=== PATIENT | female | born 1995 | race Caucasian/White ===

== ENCOUNTER 2019-05-28 13:44 | Emergency (ER) | payer SELFPAY ==
[~2019-05-28] VITALS: Ht 154.9 cm; Wt 64.9 kg
[2019-05-28 14:28] VITALS: BP 105/67
--- NOTE | 2019-05-28 14:31 | NUR ---
PT TO LOBBY
--- NOTE | 2019-05-28 15:24 | NUR ---
PT TO ER BED 9
--- NOTE | 2019-05-28 15:30 | NUR ---
PATIENT WITH SUDDEN ONSET OF GENERALIZED PAIN OF ABDOMEN, HEAD, AND SORE THROAT severe chills,
[2019-05-28] MEDS ORDERED: NACL 0.9% 2,000 ML IV SCH (15:36)
[2019-05-28] MEDS ORDERED: ACETAMINOPHEN 325 MG SUPP RC ONE (15:40)
[2019-05-28] MEDS ORDERED: cefTRIAXone 1,000 MG in DEXT 5% MINI-BAG PLUS 50 ML IV ONE (15:40)
[2019-05-28] MEDS ORDERED: GENTAMICIN 80 MG in DEXTROSE 5% 100 ML IV ONE (15:40)
[2019-05-28 16:14] LABS: BASOPHILS % (AUTO) 0.2 % (0.0-2.0); EOSINOPHILS % (AUTO) 0.1 % (0.0-4.0); HEMATOCRIT 39.8 % (36-48); HEMOGLOBIN 13.3 g/dL (12.0-16.0); LYMPHOCYTES # (AUTO) 0.7 K/uL (2.5-16.5); LYMPHOCYTES % (AUTO) 4.3 % (20.5-51.1); MEAN CORPUSCULAR HEMOGLOBIN 27 pg (27-31); MEAN CORPUSCULAR HGB CONC 33 g/dL (33-37); MEAN CORPUSCULAR VOLUME 79.9 fL (80-94); MONOCYTES # (AUTO) 0.9 K/uL (0.8-1.0); MONOCYTES % (AUTO) 5.7 % (1.7-9.3); NEUTROPHILS # (AUTO) 14.6 K/uL (1.8-7.7); NEUTROPHILS % (AUTO) 89.7 % (42.2-75.2); PLATELET COUNT (AUTO) 204 K/uL (140-450); RED BLOOD CELL COUNT(AUTO) 4.98 MIL/uL (4.20-5.40); RED CELL DISTRIBUTION WIDTH 14.9 % (11.6-13.7); WHITE BLOOD COUNT (AUTO) 16.3 K/uL (4.8-10.8)
[2019-05-28 16:24] LABS: BILIRUBIN,URINE NEGATIVE (NEGATIVE); BLOOD, URINE NEGATIVE (NEGATIVE); COLOR,URINE YELLOW (YELLOW); LEUKOCYTE ESTERASE ,URINE 3+ (NEGATIVE); NITRITE, URINE NEGATIVE (NEGATIVE); PH,URINE 5.5 (5.0-9.0); UGLUCOSE NEGATIVE (NEGATIVE)
[2019-05-28] MEDS ORDERED: cefTRIAXone 1,000 MG VIAL ONE (16:27)
[2019-05-28] MEDS ORDERED: GENTAMICIN 80 MG/2 ML VIAL ONE (16:27)
[2019-05-28 16:31] LABS: APPEARANCE,URINE HAZY (CLEAR)
[2019-05-28 16:34] LABS: ANION GAP 16.2 (8-16); CARBON DIOXIDE 23.4 mmol/L (21-32); CREATININE 0.8 mg/dL (0.6-1.3); POTASSIUM 3.6 mmol/L (3.5-5.1)
[2019-05-28 16:35] LABS: RBC,URINE 0-5 /HPF (0-5); WBC,URINE 60-80 /HPF (0-5)
[2019-05-28 16:50] LABS: ALBUMIN 4.3 g/dL (3.4-5.0); TOTAL BILIRUBIN 1.6 mg/dL (0.0-1.0)
--- NOTE | 2019-05-28 17:42 | NUR ---
up to restroom
--- NOTE | 2019-05-28 18:47 | NUR ---
PT. TO CT
[2019-05-28 19:14] VITALS: BP 95/54
--- NOTE | 2019-05-28 19:16 | NUR ---
Patient discharged with v/s stable. Written and verbal after care instructions given and explained. Patient alert, oriented and verbalized understanding of instructions. Ambulatory with steady gait. All questions addressed prior to discharge. ID band removed. Patient advised to follow up with PMD. Rx of levaquin and Fiorcet given. Patient educated on indication of medication including possible reaction and side effects. Opportunity to ask questions provided and answered.
== END 2019-05-28 19:16 | disposition home or self-care (01) ==
LOC: MED 13:44
DX: J03.90 Acute tonsillitis, unspecified (principal); N39.0 Urinary tract infection, site not specified; R50.9 Fever, unspecified; R51 Headache; Z87.448 Personal history of other diseases of urinary system
CPT/HCPCS: 36415; 71045; 74176; 80053; 81001; 81025; 83605; 85025; 87040; 87086; 96365; 96367; 99284; J0696; J1580; J7030; Q0092

== ENCOUNTER 2020-08-15 15:11 | Emergency (ER) | payer MEDICAID ==
[~2020-08-15] VITALS: Ht 154.9 cm; Wt 69.9 kg
[2020-08-15 15:15] VITALS: BP 118/71
--- NOTE | 2020-08-15 15:17 | NUR ---
pt ambulated to bed 11, steady gait.
--- NOTE | 2020-08-15 15:25 | NUR ---
25 Y/F PRESENTS TO ED C/O CONSISTENT SHARP RIGHT LOWER ABDOMINAL PAIN 8/ SINCE YESTERDAY. PT REPORTS PAIN RADIATES FROM TO RIGHT SHOULDER AND KNEE PAIN TODAY. DENIES N/V/D, ABNORMAL VAGINAL BLEEDING. PT DENIES CONSTIPATION, REPPORTS NORMAL BM YESTERDAY. PT REPORTS LOSS OF APPETITE. DENIES DYSURIA OR HEMATURIA. PMH: DENIES MEDS: DENIES
--- NOTE | 2020-08-15 15:55 | NUR ---
DR. ROSA AT BEDSIDE.
[2020-08-15] MEDS ORDERED: NACL 0.9% 500 ML IV ONE (15:59)
[2020-08-15] MEDS ORDERED: ONDANSETRON 4 MG/2 ML VIAL IVP ONE (16:00)
[2020-08-15] MEDS ORDERED: KETOROLAC 30 MG/ML VIAL IVP ONE (16:00)
--- NOTE | 2020-08-15 16:24 | NUR ---
ULTRASOUND AT BEDSIDE.
[2020-08-15 16:36] LABS: BASOPHILS % (AUTO) 0.4 % (0.0-2.0); EOSINOPHILS # (AUTO) 0.1 K/uL (0-0.4); EOSINOPHILS % (AUTO) 0.9 % (0.0-4.0); HEMATOCRIT 37.8 % (36-48); HEMOGLOBIN 12.8 g/dL (12.0-16.0); LYMPHOCYTES # (AUTO) 2.6 K/uL (2.5-16.5); LYMPHOCYTES % (AUTO) 27.2 % (20.5-51.1); MEAN CORPUSCULAR HEMOGLOBIN 28 pg (27-31); MEAN CORPUSCULAR HGB CONC 34 g/dL (33-37); MEAN CORPUSCULAR VOLUME 83.4 fL (80-94); MONOCYTES # (AUTO) 0.8 K/uL (0.8-1.0); MONOCYTES % (AUTO) 8.6 % (1.7-9.3); NEUTROPHILS # (AUTO) 6.1 K/uL (1.8-7.7); NEUTROPHILS % (AUTO) 62.9 % (42.2-75.2); PLATELET COUNT (AUTO) 185 K/uL (140-450); RED BLOOD CELL COUNT(AUTO) 4.53 MIL/uL (4.20-5.40); RED CELL DISTRIBUTION WIDTH 14.7 % (11.6-13.7); WHITE BLOOD COUNT (AUTO) 9.7 K/uL (4.8-10.8)
[2020-08-15 16:50] LABS: ALBUMIN 4.2 g/dL (3.4-5.0); ANION GAP 15.5 (8-16); CARBON DIOXIDE 25.3 mmol/L (21-32); CREATININE 0.8 mg/dL (0.6-1.3); POTASSIUM 3.8 mmol/L (3.5-5.1); TOTAL BILIRUBIN 0.8 mg/dL (0.0-1.0)
--- NOTE | 2020-08-15 16:56 | NUR ---
PT AMBULATED TO BATHROOM, STEADY GAIT.
[2020-08-15] MEDS ORDERED: PANTOPRAZOLE 40 MG INJ VIAL IVP ONE (17:00)
--- NOTE | 2020-08-15 17:11 | NUR ---
XR AT BEDSIDE.
--- NOTE | 2020-08-15 17:35 | NUR ---
PT TAKEN TO CT VIA WHEELCHAIR.
--- NOTE | 2020-08-15 18:00 | NUR ---
DR. ROSA AT BEDSIDE REEVALUATING PT.
[2020-08-15 18:30] VITALS: BP 118/71
== END 2020-08-15 18:31 | disposition home or self-care (01) ==
LOC: MED 15:11
DX: R10.13 Epigastric pain (principal); R11.10 Vomiting, unspecified; Z98.890 Other specified postprocedural states
CPT/HCPCS: 36415; 74018; 74176; 76705; 80053; 81002; 81025; 83690; 85025; 96374; 96375; 99285; C9113; J1885; J2405; J7030; Q0092